=== PATIENT | female | born 1960 | race Caucasian/White ===

== ENCOUNTER 2019-05-02 14:16 | Day surgery (SDC) | payer OTHER, SELFPAY ==
[2019-05-02] VITALS (9 sets, daily range): BP systolic 108–134; BP diastolic 65–81; PULSE 59–79; RESP 8–20; TEMP 36.1–36.9; O2SAT 95–100
--- NOTE | 2019-05-02 14:30 | PM.HP.1 ---
History of Present Illness Date Patient Seen: 05/02/19 Time Patient Seen: 14:44 Chief complaint: [id number] Narrative: Patient is asymptomatic no melena no hematochezia no abdominal pain had a normal colonoscopy 10 years ago is here for screening colonoscopy Patient History Social History household members: none Meds Allergies Allergy/AdvReac Type Severity Reaction Status Date / Time No Known Allergies Allergy Uncoded 01/27/18 12:59 Review of Systems Review of Systems All systems reviewed & are unremarkable except as noted in HPI and below Exam Narrative Exam Narrative: Patient is asymptomatic alert and oriented. Vital signs are stable. Lungs are clear with no rales or wheezes Heart regular rhythm no murmur Abdomen soft nontender no organomegaly. Rectal will be done time of colonoscopy. Assessment & Plan Assessment & Plan narrative: Asymptomatic patient here for screening colonoscopy. She understands and has no further questions. She has had a prior colonoscopy 10 years ago.
--- NOTE | 2019-05-02 14:46 | P.HP_ITS ---
History of Present Illness Date Patient Seen: 05/02/19 Time Patient Seen: 14:44 Chief complaint: [id number] Narrative: Patient is asymptomatic no melena no hematochezia no abdominal pain had a normal colonoscopy 10 years ago is here for screening colonoscopy Patient History Social History household members: none Meds Allergies Allergy/AdvReac Type Severity Reaction Status Date / Time No Known Allergies Allergy Uncoded 01/27/18 12:59 Review of Systems Review of Systems All systems reviewed & are unremarkable except as noted in HPI and below Exam Narrative Exam Narrative: Patient is asymptomatic alert and oriented. Vital signs are stable. Lungs are clear with no rales or wheezes Heart regular rhythm no murmur Abdomen soft nontender no organomegaly. Rectal will be done time of colonoscopy. Assessment & Plan Assessment & Plan narrative: Asymptomatic patient here for screening colonoscopy. She understands and has no further questions. She has had a prior colonoscopy 10 years ago.
[2019-05-02] MEDS: SODIUM CHLORIDE 0.9% 1,000 ML 200 ML IV (14:48)
[2019-05-02] MEDS: fentaNYL 250 MCG/5 ML INJ IV (15:00)
[2019-05-02] MEDS: MIDAZOLAM 5 MG/5 ML VIAL IV (15:00)
--- NOTE | 2019-05-02 15:32 | PM.OP.ENDO ---
Operative Date/Time/Diagnoses Date of procedure: 05/02/19 Time of procedure: 15:32 Pre-op diagnosis: Screening colonoscopy Post-op diagnosis: same Procedure & Clinicians Study performed: Total colonoscopy to the cecum Same procedure as scheduled: Yes Indications: Screening Surgeon: Andrey Lopez Procedure Notes SCOAP/Timeout: Was done Procedure in detail: The patient was properly identified during surgical pause. She was given a total of 5 mg of Versed and 250 micro g of fentanyl throughout the procedure which was well-tolerated. The flexible fiberoptic colonoscope was inserted transanally to the cecum. Patient has a very tortuous elongated colon and this is a difficult colonoscopy. However the findings are otherwise normal with no polyps no tumors no ulcers no diverticuli Scope withdrawal time: 15 Sedation minutes: 37 Specimen(s): none sent Complications: none Impression: Normal colon, however very tortuous and elongated. Recommendations: Colonscopy in 10 years Disposition: PACU
--- NOTE | 2019-05-02 15:43 | SUR.PHASEI ---
1542 Dr. Lopez here, spoke to patient. Patient very sleepy, arouses easily to voice. Drank a glass of water and returned to sleep.
--- NOTE | 2019-05-02 15:51 | SUR.PHASEI ---
1551 Stable, arouses easily, feels like she is ready to move towards discharge. Oriented.
--- NOTE | 2019-05-02 16:24 | SUR.PHASEII ---
pt discharged in computer but during discharge started to vomit. Estimate emesios at 150 cc. placed back in bed and placed on o2 for room air spo2 of 88 %. immediately improved to 96 % on 2 liters. actual discharge time will be noted in notes. p
[2019-05-02] MEDS: ONDANSETRON 4 MG ODT SL (16:25)
--- NOTE | 2019-05-02 16:45 | SUR.PHASEII ---
pt felt so much better after emesis. color improved. vital signs improved . she was able to take 100 cc of apple juice and was medicated w zofran sl per MD order. dc to care of friend via wheelchair / private vehicle
== END 2019-05-02 16:35 | disposition home or self-care (01) ==
PROVIDERS: PCP Family Medicine; Visit Provider Surgery
PROC: 0DJD8ZZ Inspection of Lower Intestinal Tract, Via Natural or Artificial Opening Endoscopic (ICD-10-PCS; CPT 45378; principal; 2019-05-02 15:15)
DX: Z12.11 Encounter for screening for malignant neoplasm of colon (principal)
CPT/HCPCS: 45378; 99152; 99153; J2250; J3010

== ENCOUNTER → 2021-12-25 08:02 | Outpatient (CLI) | payer OTHER, SELFPAY ==
[2021-12-25 19:11] LABS: Add Manual Diff / Slide Review NO; Basophils Absolute Auto 100 /uL (0-100); Basophils Percent Auto 1.5 % (0-2); Eosinophils Absolute Auto 300 /uL (0-450); Eosinophils Percent Auto 5.7 % (2-4); Hematocrit 36.8 % (36-46); Hemoglobin 12.3 g/dL (12.0-16.0); Lymphocytes Absolute Auto 1900 /uL (1100-4500); Lymphocytes Percent Auto 40.2 % (25-40); Mean Corpuscular HGB Conc 33.5 % (30-36); Mean Corpuscular Hemoglobin 30.7 PG (26-34); Mean Corpuscular Volume 91.6 fL (80-100); Monocytes Absolute Auto 400 /uL (0-900); Monocytes Percent Auto 8.9 % (3-14); Neutrophils Absolute Auto 2100 /uL (1500-7000); Neutrophils Percent Auto 43.7 % (50-75); Platelet Count 308 X10^3/uL (150-400); Red Blood Cell Count 4.01 X10^6/uL (4.0-5.2); Red Cell Distribution Width 13.7 % (11.6-14.8); White Blood Cell Count 4.7 X10^3/uL (4.5-11.0)
[2021-12-25 19:34] LABS: Alanine Aminotransferase 22 IU/L (<35); Albumin 4.3 g/dL (3.5-5.0); Albumin Globulin Ratio 1.6 (1.0-2.8); Alkaline Phosphatase 76 U/L (38-126); Aspartate Aminotransferase 28 IU/L (14-36); BUN Creatinine Ratio 22.5 (6-22); Bilirubin Total 0.8 mg/dL (0.2-1.3); Blood Urea Nitrogen 16 mg/dL (7-17); Calcium 9.3 mg/dL (8.4-10.2); Carbon Dioxide 32 mmol/L (22-32); Chloride 102 mmol/L (98-107); Cholesterol 200 mg/dL (140-199); Estimated Glomerular Filt Rate > 60.0 mL/min (>60); Globulin 2.7 g/dL (1.7-4.1); Glucose 97 mg/dL (80-110); HDL Cholesterol 74 mg/dL (40-60); HEMOLYSIS < 15 (0-50); LDL Cholesterol Calculated 112 mg/dL (<100); Potassium 4.3 mmol/L (3.4-5.1); Sodium 137 mmol/L (137-145); Triglycerides 68 mg/dL (35-150)
[2021-12-25 20:25] LABS: Free T4, Direct Thyroxine 1.04 ng/dL (0.78-2.19)
== END ==
PROVIDERS: PCP Family Medicine; Visit Provider Physician Assistant
DX: R53.83 Other fatigue (principal); E03.8 Other specified hypothyroidism
CPT/HCPCS: 80053; 80061; 84439; 84443; 85025

== ENCOUNTER → 2022-02-06 10:40 | Outpatient (CLI) | payer OTHER, SELFPAY ==
--- NOTE | 2022-02-06 10:43 | DI.US.S_ITS ---
PROCEDURE: US THYROID INDICATIONS: ENLARGED THYROID TECHNIQUE: Real-time scanning was performed of the thyroid gland, with image documentation. COMPARISON: None. FINDINGS: Right: Thyroid lobe measures 5.1 x 1.8 x 1.7 cm, and is homogeneous in echotexture. Left: Thyroid lobe measures 4.1 x 1.4 x 1.3 cm, and is homogenous in echotexture. Isthmus: 2.3 mm thick. Thyroid echotexture is diffusely heterogeneous. No discrete thyroid nodules or masses are identified. IMPRESSION: 1. Diffuse thyroid heterogeneous echotexture. Finding is nonspecific but can be associated with Alexander's thyroiditis and Graves disease. Recommend correlation with clinical and laboratory data. 2. No discrete thyroid nodules or masses. Dictated by: Isabela Wilkerson MD, PhD on 02/06/2022 at 15:33 Approved by: Isabela Wilkerson MD, PhD on 02/06/2022 at 15:36
== END ==
PROVIDERS: PCP Physician Assistant; Referring Provider Physician Assistant; Visit Provider Physician Assistant
DX: R22.1 Localized swelling, mass and lump, neck (principal); E04.9 Nontoxic goiter, unspecified; Z13.820 Encounter for screening for osteoporosis; M81.0 Age-related osteoporosis without current pathological fracture; Z78.0 Asymptomatic menopausal state
CPT/HCPCS: 76536; 77080

== ENCOUNTER → 2022-03-18 09:55 | Outpatient (CLI) | payer OTHER, SELFPAY ==
[2022-03-18 19:36] LABS: Free T4, Direct Thyroxine 0.92 ng/dL (0.78-2.19)
[2022-03-18 20:21] LABS: Thyroid Stimulating Hormone 5.87 uIU/mL (0.47-4.68)
[2022-03-19 05:13] LABS: Thyroid Peroxidase Antibodies 95 IU/mL (0-34)
== END ==
PROVIDERS: PCP Physician Assistant; Visit Provider Physician Assistant
DX: E03.8 Other specified hypothyroidism (principal)
CPT/HCPCS: 84439; 84443; 86376

== ENCOUNTER → 2022-11-21 08:54 | Outpatient (CLI) | payer OTHER, SELFPAY ==
--- NOTE | 2022-11-21 09:01 | DI.RAD.S_ITS ---
PROCEDURE: XR THORACIC SPINE 2V INDICATIONS: OSTEOPOROSIS TECHNIQUE: 3 views of the thoracic spine were acquired. COMPARISON: None. FINDINGS: Bones: No fractures or dislocations. No suspicious bony lesions. 12 pairs of ribs are noted, and appear intact where visualized. Leftward curvature of the thoracolumbar spine with the left apex at T11 and a Becerril angle of 7 degrees. Degenerative changes are mild. No vertebral body height loss. Soft tissues: No paravertebral stripe thickening. IMPRESSION: 1. Mild degenerative changes. 2. Leftward curvature of the thoracolumbar spine. Dictated by: Hussein Looney M.D. on 11/21/2022 at 9:26 Approved by: Hussein Looney M.D. on 11/21/2022 at 9:27
--- NOTE | 2022-11-21 09:01 | DI.RAD.S_ITS ---
PROCEDURE: XR LUMBAR SPINE 2-3V INDICATIONS: OSTEOPOROSIS TECHNIQUE: 3 views of the lumbar spine were acquired. COMPARISON: None. FINDINGS: Bones: 5 [id number] vertebrae are present. There is normal bony alignment. No vertebral body compression fractures. No suspicious bony lesions. Multilevel facet arthrosis is present. There is grade 2 anterolisthesis of L5-S1 measuring 1.4 cm. Anterior osteophytes are seen at multiple levels. The sacroiliac joints are normal. Soft tissues: Overlying bowel gas pattern is normal. No suspicious soft tissue calcifications. IMPRESSION: 1. Facet arthrosis in the lower lumbar spine. 2. Grade 2 anterolisthesis L5-S1 measuring 1.4 cm. 3. No acute abnormality. Dictated by: Hussein Looney M.D. on 11/21/2022 at 9:24 Approved by: Hussein Looney M.D. on 11/21/2022 at 9:26
[2022-11-21 11:43] LABS: Alanine Aminotransferase 32 IU/L (<35); Albumin 4.3 g/dL (3.5-5.0); Albumin Globulin Ratio 1.4 (1.0-2.8); Alkaline Phosphatase 89 U/L (38-126); Aspartate Aminotransferase 32 IU/L (14-36); BUN Creatinine Ratio 25.7 (6-22); Bilirubin Total 0.6 mg/dL (0.2-1.3); Blood Urea Nitrogen 19 mg/dL (7-17); Calcium 9.3 mg/dL (8.4-10.2); Carbon Dioxide 30 mmol/L (22-32); Chloride 101 mmol/L (98-107); Estimated Glomerular Filt Rate > 60 mL/min (>60); Glucose 95 mg/dL (80-110); HEMOLYSIS < 15 (0-50); Potassium 5.3 mmol/L (3.4-5.1); Sodium 138 mmol/L (137-145); Total Protein 7.3 g/dL (6.3-8.2)
[2022-11-21 11:48] LABS: NT-proBNP (BNP-Adult 18+) 64 pg/mL (<125)
[2022-11-21 11:57] LABS: Vitamin D 25 Hydroxy (D3) 59.6 ng/mL (30.0-100.0)
[2022-11-22 08:09] LABS: Parathyroid Hormone Int 46 pg/mL (15-65)
== END ==
PROVIDERS: PCP Physician Assistant; Referring Provider Internal Medicine Endocrinology, Diabetes & Metabolism; Visit Provider Internal Medicine Endocrinology, Diabetes & Metabolism
DX: M81.0 Age-related osteoporosis without current pathological fracture (principal); M43.9 Deforming dorsopathy, unspecified
CPT/HCPCS: 72070; 72100; 80053; 82306; 82340; 82570; 83880; 83970

== ENCOUNTER → 2024-03-07 09:15 | Outpatient (CLI) | payer MEDICARE, SELFPAY ==
[2024-03-07 15:45] LABS: Alanine Aminotransferase 27 IU/L (<35); Albumin 4.2 g/dL (3.5-5.0); Albumin Globulin Ratio 1.8 (1.0-2.8); Alkaline Phosphatase 87 U/L (38-126); Aspartate Aminotransferase 33 IU/L (14-36); BUN Creatinine Ratio 30.6 (6-22); Bilirubin Total 0.8 mg/dL (0.2-1.3); Blood Urea Nitrogen 22 mg/dL (7-17); Calcium 8.9 mg/dL (8.4-10.2); Carbon Dioxide 27 mmol/L (22-32); Chloride 106 mmol/L (98-107); Cholesterol 198 mg/dL (140-199); Estimated Glomerular Filt Rate > 60 mL/min (>60); Globulin 2.4 g/dL (1.7-4.1); Glucose 97 mg/dL (80-110); HDL Cholesterol 80 mg/dL (40-60); HEMOLYSIS < 15 (0-50); LDL Cholesterol Calculated 107 mg/dL (<100); Potassium 4.2 mmol/L (3.4-5.1); Sodium 139 mmol/L (137-145); Total Protein 6.6 g/dL (6.3-8.2); Triglycerides 57 mg/dL (35-150)
[2024-03-07 16:14] LABS: TSH w/ Reflex to FT4 8.32 uIU/mL (0.47-4.68)
[2024-03-07 16:15] LABS: Vitamin D 25 Hydroxy (D3) 48.9 ng/mL (30.0-100.0)
[2024-03-07 16:43] LABS: Free T4, Direct Thyroxine 0.81 ng/dL (0.78-2.19)
== END ==
PROVIDERS: PCP Family Medicine; Visit Provider Family Medicine
DX: E78.5 Hyperlipidemia, unspecified (principal); M81.0 Age-related osteoporosis without current pathological fracture; E06.3 Autoimmune thyroiditis; R79.89 Other specified abnormal findings of blood chemistry
CPT/HCPCS: 80053; 80061; 82306; 84439; 84443

== ENCOUNTER → 2024-04-06 14:10 | Outpatient (CLI) | payer MEDICARE, SELFPAY ==
--- NOTE | 2024-04-06 14:12 | DI.RAD.S_ITS ---
PROCEDURE: XR DEXA AXIAL SKELETON INDICATIONS: osteoporosis COMPARISON: [facility], CR, XR DEXA AXIAL SKELETON, 02/06/2022, 11:09. FINDINGS: Lumbar Spine: Bone mineral density 0.742 g/cm2, T score -2.8. Left Hip: Bone mineral density 0.758 g/cm2, T score -1.5. Left Femoral Neck: Bone mineral density 0.614 g/cm2, T score -2.1. Right Hip: Bone mineral density 0.729 g/cm2, T score -1.7. Right Femoral Neck: Bone mineral density 0.626 g/cm2, T score -2.0. Fracture Risk Calculation (when applicable): 10-year fracture risk of a major osteoporotic fracture without prior fracture 11% and with prior fracture 17%, and of a hip fracture without prior fracture 1.5% and with prior fracture 2.5%. (T score greater or equal to -1.0 to: NORMAL) (T score from -1.1 to -2.4: OSTEOPENIA) (T score less than or equal to -2.5: OSTEOPOROSIS) IMPRESSION: Osteoporosis of the lumbar spine. Osteopenia of the bilateral hips. Follow-up guidelines as follows: Osteoporosis: Consider a repeat DEXA and Vertebral Fracture Assessment (VFA) exam in 2 years or sooner if medically necessary, to reassess this patient's status. Osteopenia: Consider a repeat DEXA in 2-3 years to reassess this patient's status, or if there is a new clinical indication. Normal: Consider a repeat DEXA in 5 years or sooner, or if there is a new clinical indication. All treatment decisions require clinical judgment and consideration of individual patient factors, including patient preferences, comorbidities, previous drug use, risk factors not captured in the FRAX model (e.g., frailty, falls, vitamin D deficiency, increased bone turnover, interval significant decline in bone density ) and possible under- or over-estimation of fracture risk by FRAX. In addition, the NOF Guide recommends that FDA-approved medical therapies be considered in postmenopausal women and men age >= 50 years with a: * Hip or vertebral (clinical or morphometric) fracture * T-score of <=-2.5 at the spine or hip * Ten-year fracture probability by FRAX of >= 3% for hip fracture or >=20% for major osteoporotic fracture. People with diagnosed cases of osteoporosis or at high risk for fracture should have regular bone mineral density tests. For patients eligible for Medicare, routine testing is allowed once every 2 years. The testing frequency can be increased to one year for patients who have rapidly progressing disease, those who are receiving or discontinuing medical therapy to restore bone mass, or have additional risk factors. Dictated by: Neema Kaur M.D. on 04/06/2024 at 16:42 Approved by: Neema Kaur M.D. on 04/06/2024 at 16:43
== END ==
LOC: RAD 14:11
PROVIDERS: PCP Family Medicine; Referring Provider Family Medicine; Visit Provider Family Medicine
DX: M81.0 Age-related osteoporosis without current pathological fracture (principal); Z78.0 Asymptomatic menopausal state
CPT/HCPCS: 77080

== ENCOUNTER → 2024-06-23 10:50 | Outpatient (CLI) | payer MEDICARE, SELFPAY ==
[2024-06-23 20:43] LABS: Add Manual Diff / Slide Review NO; Basophils Absolute Auto 100 /uL (0-100); Basophils Percent Auto 1.8 % (0-2); Eosinophils Absolute Auto 200 /uL (0-450); Eosinophils Percent Auto 4.3 % (2-4); Hematocrit 36.5 % (36-46); Hemoglobin 12.2 g/dL (12.0-16.0); Lymphocytes Absolute Auto 1600 /uL (1100-4500); Mean Corpuscular HGB Conc 33.5 % (30-36); Mean Corpuscular Hemoglobin 31.2 PG (26-34); Monocytes Absolute Auto 400 /uL (0-900); Neutrophils Absolute Auto 2600 /uL (1500-7000); Neutrophils Percent Auto 51.9 % (50-75); Platelet Count 297 X10^3/uL (150-400); Red Blood Cell Count 3.93 X10^6/uL (4.0-5.2); Red Cell Distribution Width 13.3 % (11.6-14.8); White Blood Cell Count 4.9 X10^3/uL (4.5-11.0)
[2024-06-23 21:17] LABS: Thyroid Stimulating Hormone 4.81 uIU/mL (0.47-4.68)
== END ==
PROVIDERS: PCP Family Medicine; Visit Provider Family Medicine
DX: R53.83 Other fatigue (principal); R03.0 Elevated blood-pressure reading, without diagnosis of hypertension; E06.3 Autoimmune thyroiditis
CPT/HCPCS: 84443; 85025

== ENCOUNTER → 2025-02-02 13:18 | Outpatient (CLI) | payer MEDICARE, SELFPAY ==
[2025-02-02 20:03] LABS: Thyroid Stimulating Hormone 3.16 uIU/mL (0.47-4.68)
== END ==
PROVIDERS: PCP Family Medicine; Visit Provider Family Medicine
DX: E06.3 Autoimmune thyroiditis (principal)
CPT/HCPCS: 84443